=== PATIENT | female | born 1960 | race Caucasian/White ===

== ENCOUNTER 2021-02-10 08:13 | Emergency (ER) | payer OTHER ==
[2021-02-10] MEDS ORDERED: HYDROCODON-ACE1 EA11 PO (09:53)
[2021-02-10] MEDS ORDERED: FLOMAX0.4 MG PO (09:53)
[2021-02-10] MEDS ORDERED: ONDANSETRON ODT8 MG PO (09:53)
== END 2021-02-10 11:58 | disposition home or self-care (01) ==
LOC: ED 08:13
DX: N13.2 Hydronephrosis with renal and ureteral calculous obstruction (principal)
CPT/HCPCS: 74176; 80053; 81001; 85025; 96374; 96375; 99284-25; J1885; J2405; J7030

== ENCOUNTER 2024-01-10 09:35 | Day surgery (SDC) | payer OTHER ==
[2024-01-08 08:33] VITALS: BP 127/87
[~2024-01-10] VITALS: Ht 172.7 cm; Wt 80.0 kg
[~2024-01-10 09:35] MED LIST: CEFAZOLIN SODIUM 2 GM/20 ML SYR IV SCH; FLOMAX0.4 MG PO; HEParin SOD (PORCINE) 5,000 UNIT/0.5 ML SYR SUB-Q SCH; HYDROCODON-ACE1 EA11 PO; IBLOOD GLUCOSE TEST STRIP 1 EA TEST VI PRN; LACTATED RINGER'S 1,000 ML IV SCH; LIDOCAINE HCL 1% 5 ML SDV INJ ONE; ONDANSETRON ODT8 MG PO
[2024-01-10 10:07] VITALS: BP 127/71
--- NOTE | 2024-01-10 10:17 | NUR ---
PT AND FAMILY INFORMED OF POSSIBLE DELAY HAD TO GO TO [facility]
[2024-01-10 10:26] LABS: ALBUMIN 3.8 g/dL (3.4-5.0); ALBUMIN/GLOBULIN RATIO 0.97 (1.1-2.4); ANION GAP 14.5 (7-21); BILIRUBIN, TOTAL 0.6 ng/dL (0.2-1.0); BUN/CREATININE RATIO 21.91 (6.0-28.6); CALCIUM 9.7 mg/dL (8.5-10.1); CREATININE, SERUM 0.73 mg/dL (0.55-1.02); POTASSIUM 3.5 mmol/L (3.5-5.1); PROTEIN, TOTAL 7.7 g/dL (6.4-8.2)
--- NOTE | 2024-01-10 11:21 | NUR ---
friend hema in room visiting given update shouldnt be delay.
[2024-01-10] MEDS ORDERED: propofoL 200 MG/20 ML VIAL ONE (11:51)
[2024-01-10] MEDS ORDERED: DEXAMETHASONE SOD PHOS 4 MG/ML VIAL ONE (11:51)
[2024-01-10] MEDS ORDERED: KETAMINE in NS 50 MG/5 ML SYR ONE (11:51)
[2024-01-10] MEDS ORDERED: dexmedeTOMIDine HCl 200 MCG/2 ML VIAL ONE (11:51)
[2024-01-10] MEDS ORDERED: MAGNESIUM SULFATE 1 GM/2 ML VIAL ONE (11:51)
[2024-01-10] MEDS ORDERED: fentaNYL citrate 100 MCG/2 ML VIAL ONE (11:51)
[2024-01-10] MEDS ORDERED: ondansetron HCL 4 MG/2 ML VIAL ONE (11:51)
[2024-01-10] MEDS ORDERED: LIDOCAINE HCL 2% 5 ML SDV ONE (11:52)
[2024-01-10] MEDS ORDERED: ACETAMINOPHEN 1,000 MG/100 ML VIAL ONE (11:52)
[2024-01-10] MEDS ORDERED: SODIUM CHLORIDE 0.9% 40 ML IV ONE (11:52)
--- NOTE | 2024-01-10 12:26 | NUR ---
DAYCARE MANAGER IN TO TALK WITH PT.
[2024-01-10] MEDS ORDERED: METOCLOPRAMIDE HCL 10 MG/2 ML SDV ONE (12:57)
[2024-01-10] MEDS ORDERED: ePHEDrine sulfate 50 MG/ML AMP ONE (13:41)
[2024-01-10] MEDS ORDERED: droPERidol 5 MG/2 ML VIAL IV PRN (14:15)
[2024-01-10] MEDS ORDERED: IBLOOD GLUCOSE TEST STRIP 1 EA TEST VI PRN (14:15)
[2024-01-10] MEDS ORDERED: fentaNYL citrate 100 MCG/2 ML VIAL IV PRN (14:15)
[2024-01-10] MEDS ORDERED: KETOROLAC TROMETHAMINE 30 MG/ML VIAL IV PRN (14:15)
[2024-01-10] MEDS ORDERED: NALOXONE HCL 0.4 MG SYR IV PRN (14:15)
[2024-01-10] MEDS ORDERED: ondansetron HCL 4 MG/2 ML VIAL IV PRN (14:15)
[2024-01-10] MEDS ORDERED: LACTATED RINGER'S 1,000 ML IV SCH (15:15)
[2024-01-10] MEDS ORDERED: ACETAMINOPHEN 500 MG TAB PO PRN (15:15)
[2024-01-10] MEDS ORDERED: IBUPROFEN 600 MG TAB PO PRN (15:15)
[2024-01-10] MEDS ORDERED: OXYCODONE/APAP 7.5/325 TAB PO PRN (15:15)
[2024-01-10] MEDS ORDERED: IBUPROFEN600 MG PO (15:19)
[2024-01-10] MEDS ORDERED: OXYCODON-ACETA1 EAC2 PO (15:19)
[2024-01-10] MEDS ORDERED: ACETAMINOPHEN500 MG PO (15:19)
--- NOTE | 2024-01-10 15:20 | NUR ---
01/10/24 1520 Krystal Collier 1448 PT ARRIVED TO PACU ON RA AND PT WAKES TO TACTILE STIMULI. PT DENIES PAIN AND EASILY FALLS BACK TO SLEEP. VSS. 1500 PT REPORTS "A LITTLE" NAUSEA. MEDICATION GIVEN AND BLANKETS REMOVED AND COOL AIR BLOWING ON PT. PT REPORTS THIS IS HELPING HER NAUSEA. 1509 PT OPENS HER EYES AND REPORTS "I FEEL LIKE I GOT A NAP, I JUST DONT WANT TO GET SICK." 1512 "NAUSEA IS WORSE THAN THE PAIN." 1515 NAUSEA MEDICATION GIVEN. PT WAKES OFF AND ON.
[2024-01-10] MEDS ORDERED: diphenhydrAMINE HCL 50 MG/ML VIAL IV ONE (15:45)
[2024-01-10] MEDS ORDERED: SCOPOLAMINE 1 MG/3 DAYS PATCH 1 EACH TDSY TD PRN (15:45)
[2024-01-10 16:20] VITALS: BP 132/75
[2024-01-10] MEDS ORDERED: ONDANSETRON ODT8 MG PO (16:33)
--- NOTE | 2024-01-10 16:34 | NUR ---
1615 PT CAME FROM PACU TO DAY SURGERY VIA STRECHER. REPORT TAKEN FROM BINDU Oconnell RN. VITALS TAKEN. PT PAIN TOLERABLE AT 10. TARYN DRAIN IN PLACE. 3 LAP SITES COVERED, NO DRAINAGE NOTED ON COVERS. PT AT BEDSIDE. PT BREATHING EQUAL AND UNLABORED. 1620 PT TOOK PRESCRIPTION TO BE FILLED AT PHARMACY. PT HAS CALL LIGHT WITHIN REACH, PT HAS WATER AND SNACKS AT BEDSIDE. PT REPORTS NO NAUSEA CURRENTLY.
[2024-01-10 17:13] VITALS: BP 129/80
--- NOTE | 2024-01-10 17:33 | NUR ---
1713 VITALS TAKEN. PAIN 1/10 TOLERABLE LEVEL OF PAIN. PT REPORTS NO NAUSEA. 1715 DISCHARGE PAPERWORK GONE OVER. TARYN DRAIN TEACHING GONE OVER. AT BEDSIDE FOR TEACHING. PT AND FAMILY HAVE NO FURTHER QUESTIONS AT THIS TIME. 1720 IV DISCONTINUED. 1725 PT DISCHARGED FROM DAY SURGERY VIA WHEELCHAIR TO HUSBANDS CAR OUT FRONT OF THE HOSPITAL.
--- NOTE | 2024-01-12 12:16 | OR ---
[facility] [address], [place] [address] Signed DATE OF OPERATION: 01/10/2024 SURGEON: Gee Swan MD PREOPERATIVE DIAGNOSIS: Left upper outer quadrant infiltrating ductal breast carcinoma ER, [place] positive. POSTOPERATIVE DIAGNOSIS: Left upper outer quadrant infiltrating ductal breast carcinoma ER, [place] positive. PROCEDURES: 1. Injection of methylene blue dye for sentinel lymph node identification. 2. Left partial mastectomy with oncoplastic closure (pedicle mobilization included). 3. Left axillary sentinel lymph node biopsy. ANESTHESIA: General LMA, Alex Soler, GUEST HISTORY CLERK and local 0.25% Marcaine with epinephrine. INDICATION: This 63-year-old white woman is a patient of Dr. Conner Larios. She is found to have a palpable mass in the upper outer aspect of the breast. Evaluation included ultrasound and chest x-ray and ultimately image-guided biopsy. This confirmed infiltrating ductal breast carcinoma. Largest invasive focus was 14 mm in size without associated DCIS or lymphatic or vascular invasion. She does have family history of breast cancer in a paternal grandmother and a maternal great aunt. Her mother and sister had no breast problems. Her ER and [place] receptors have returned as positive. She is admitted at this time to undergo a left partial mastectomy and sentinel lymph node biopsy, anticipating postoperative radiation therapy in the future. She understands as does her the risk of bleeding, infection, cosmetic deformity, need for additional treatment including re-excision should margins be positive, possible axillary dissection either now or in the future depending on pathologic findings. The risk of bleeding, infection, cosmetic deformity, and anticipated other interventions in the future are thus well understood and she wished to proceed. FINDINGS: Methylene blue injection was undertaken. There was faint uptake in two sentinel lymph nodes of the axilla, not as intense as usual. At least three lymph nodes were excised corresponded to sentinel lymph node status. There are no palpable nodes elsewhere in the axilla. Electronically Signed By: GEE SWAN MD 01/12/24 1216 PATIENT NAME: SANDRITA BARRIOS OPERATIVE REPORT DATE OF : 60 REPORT #: [id number] PHYSICIAN: GEE SWAN MD PCP: CONNER LARIOS MD REPORT IS CONFIDENTIAL AND NOT TO BE RELEASED WITHOUT AUTHORIZATION [facility] [address], [place] [address] Signed The main lesion was in the upper outer aspect towards the midline a bit more. An incision was made directly over the lesion. Wide resection was undertaken with a clinically negative margin. An incision was taken down to the pectoralis fascia. Given the sizable defect that resulted oncoplastic closure was deemed advisable and superior and inferior breast pedicles were mobilized from pectoralis fascia and advanced towards each other filling the defect well. By conclusion, good cosmesis was noted. Additionally, given the extent of sentinel lymph nodes and the left axilla as well as mobilization of the breast pedicles, a drain was placed to incorporate both axillary and sub-parenchymal drainage and brought out inferiorly and near the lateral inferior breast crease. DESCRIPTION OF PROCEDURE: The patient was brought to the operating room, given a general LMA type anesthetic. Preoperative antibiotic Ancef was given. Sequential compression device stockings were used and heparin subcutaneously administered. The left breast and axilla was prepared with a chlorhexidine solution and draped sterilely. About 1 mL of methylene blue dye was injected in the subepithelial area in the upper outer aspect of the left areola. Breast massage was briefly undertaken. After sterile draping, a small transverse incision was made in the inferior aspect of the axilla and dissection carried through the subcutaneous tissue. The soft axillary fat was identified and immediately no signs of lymphatic uptake by the methylene blue dye. Blunt dissection throughout the axillary area medially, inferiorly and superiorly was undertaken ultimately identifying somewhat fibrotic lymph nodes that had faint uptake of blue dye. These were dissected free. Clips were applied as necessary. At least three such lymph nodes were identified, likely more in the axillary tissue that was excised. Palpation revealed no suspicious nodes. The wound was packed and attention turned towards the primary tumor. Although it would be hoped to provide a circumareolar incision, the lesion was more cephalad than that and given its bulky size and nature, it is deemed most advisable to place the incision directly over the lesion itself. The lesion was marked on the skin as to its limits and an incision was made along the line of skin tension. Dissection was carried through the dermis with electrocautery and superior and inferior flaps were developed keeping well the margins of the neoplastic process. The superior portion of the specimen was marked with a suture in situ so as to provide accuracy in the lateral aspect as well. Dissection was carried through the parenchyma directly as possible down to the pectoralis fascia. The pectoralis fascia was incised in continuity with the parenchymal lesion. The lesion was excised and explanted and measured approximately 6 to 8 cm at least in width and similar depth. There appeared to be no margins on the excised specimen that would be worrisome for malignancy. Irrigation was undertaken and hemostasis was considered good. Given the extent of resection, an oncoplastic closure Electronically Signed By: GEE SWAN MD 01/12/24 1216 PATIENT NAME: SANDRITA BARRIOS [facility] OPERATIVE REPORT DATE OF : 60 REPORT #: [id number] PHYSICIAN: GEE SWAN MD PCP: CONNER LARIOS MD REPORT IS CONFIDENTIAL AND NOT TO BE RELEASED WITHOUT AUTHORIZATION [facility] [address], [place] [address] Signed was deemed advisable. On that basis, the superior breast pedicle that remained was mobilized from the underlying pectoralis with electrocautery, mobilizing it inferiorly. Similarly, the inferior pedicle was mobilized. The base of the mobilized pedicles was reapproximated with interrupted 2-0 Vicryl as was the parenchyma itself more superficially. Reinspection of the axilla showed good hemostasis. Extensive evaluation for additional blue lymphatic uptake was not forthcoming. A tunnel was created between the axillary incision and the flap area allowing for a separate incision inferiorly in the breast crease to provide a 7 mm flat Kole drain to cover both the axilla and the sub-parenchymal mobilization. This was secured to the skin with nylon suture. Irrigation was undertaken at the axilla. Clips that had been applied appeared to be hemostatic and closure was then undertaken with interrupted 2-0 Vicryl of the deep parenchyma. The skin was closed in both wounds with running subcuticular 3-0 Vicryl. Steri-Strips were applied as were Acticoat dressings. Drains applied to bulb suction. There was minimal serosanguineous output. The patient was ultimately extubated and transferred to the recovery room in good condition having suffered no complication. Sponge, needle, and instrument counts reported as correct x3. MD PAPO Pascal/LATONYA /[id number] cc: MD Andrés Hernandez MD, PH.D. Conner Larios MD Copies: SHEFALI BUCKLEY MD, JUNO MD Electronically Signed By: GEE SWAN MD 01/12/24 1216 PATIENT NAME: KAYLEIGH BARRIOSTami MARQUEZ OPERATIVE REPORT DATE OF : 60 REPORT #: [id number] PHYSICIAN: GEE SWAN MD PCP: CONNER LARIOS MD REPORT IS CONFIDENTIAL AND NOT TO BE RELEASED WITHOUT AUTHORIZATION [facility] [address] [place] [id number] Signed CONNER LARIOS MD ~ Electronically Signed By: GEE SWAN MD 01/12/24 1216 PATIENT NAME: RACHEALTIMISANDRITA OPERATIVE REPORT DATE OF : 60 REPORT #: [id number] PHYSICIAN: GEE SWAN MD PCP: CONNER LARIOS MD REPORT IS CONFIDENTIAL AND NOT TO BE RELEASED WITHOUT AUTHORIZATION
== END 2024-01-10 17:25 | disposition home or self-care (01) ==
LOC: DS 09:35
PROVIDERS: ATTEND Surgery
PROC: 0HBU0ZZ Excision of Left Breast, Open Approach (ICD-10-PCS; principal; 2024-01-10 10:45)
PROC: 07B60ZZ Excision of Left Axillary Lymphatic, Open Approach (ICD-10-PCS; 2024-01-10 10:45)
DX: C50.412 Malignant neoplasm of upper-outer quadrant of left female breast (principal); C79.89 Secondary malignant neoplasm of other specified sites; C77.3 Secondary and unspecified malignant neoplasm of axilla and upper limb lymph nodes; Z17.0 Estrogen receptor positive status [ER+]
CPT/HCPCS: 00400; 36415; 80053; J0131; J0690; J1100; J1200; J1644; J1790; J1885; J2001; J2405; J2704; J2765; J3010; J3475; J3490; J7121; Q9968

== ENCOUNTER 2025-03-10 16:09 | Emergency (ER) | payer OTHER ==
[~2025-03-10] VITALS: Ht 172.7 cm; Wt 79.5 kg
[~2025-03-10 16:09] MED LIST changes: +ACETAMINOPHEN500 MG PO; -CEFAZOLIN SODIUM 2 GM/20 ML SYR IV SCH; -HEParin SOD (PORCINE) 5,000 UNIT/0.5 ML SYR SUB-Q SCH; -IBLOOD GLUCOSE TEST STRIP 1 EA TEST VI PRN; +IBUPROFEN600 MG PO; -LACTATED RINGER'S 1,000 ML IV SCH; -LIDOCAINE HCL 1% 5 ML SDV INJ ONE; +OXYCODON-ACETA1 EAC2 PO
[2025-03-10] MEDS ORDERED: dilTIAZem HCL 25 MG/5 ML VIAL IV ONE (17:15)
[2025-03-10] MEDS ORDERED: EXEMESTANE25 MG PO (19:27)
[2025-03-10] MEDS ORDERED: dilTIAZem HCL 30 MG TAB PO ONE (20:30)
[2025-03-10] MEDS ORDERED: APIXABAN 5 MG TAB PO ONE (20:30)
[2025-03-10] MEDS ORDERED: DILTIAZEM ER120 M2 PO (20:32)
[2025-03-10] MEDS ORDERED: ELIQUIS5 MG PO (20:32)
[2025-03-10 20:49] VITALS: BP 122/92
--- NOTE | 2025-03-10 21:30 | EKG ---
[facility] [address] [place] [address] Signed Atrial flutter with 2:1 AV conduction Nonspecific T wave abnormality Abnormal ECG When compared with ECG of 08-JAN-2024 09:39, Atrial flutter has replaced Sinus rhythm Vent. rate has increased BY [address] now depressed in Anterior leads Nonspecific T wave abnormality, worse in Lateral leads Confirmed by Norman Gardner MD () on 03/10/2025 9:30:22 PM Electronically Signed By: NORMAN GARDNER MD 03/10/252129 PATIENT NAME: SANDRITA BARRIOS Electrocardiogram DATE OF : 60 PHYSICIAN: NORMAN GARDNER MD REPORT #: [id number] REPORT IS CONFIDENTIAL AND NOT TO BE RELEASED WITHOUT AUTHORIZATION
== END 2025-03-10 20:49 | disposition home or self-care (01) ==
LOC: ED 16:09
DX: I48.92 Unspecified atrial flutter (principal); C50.919 Malignant neoplasm of unspecified site of unspecified female breast; Z79.899 Other long term (current) drug therapy
CPT/HCPCS: 36415; 84443; 93005; 93010; 96374; 99284-25